=== PATIENT | male | born 1940 | race Caucasian/White ===

== ENCOUNTER 2018-09-10 03:51 | Observation (INO) ==
--- NOTE | 2018-09-10 04:06 | ERNOTE ---
Upper Extremity HPI - General Extremities Pain Location: 2nd finger: left, 3rd finger: left Time Seen by Provider: 09/10/18 03:58 Source: patient Exam Limitations: no limitations - Immun/Allergies/Home Medications Allergies/Adverse Reactions: Allergies Allergy/AdvReac Type Severity Reaction Status Date / Time No Known Allergies Allergy Unverified 08/29/13 17:01 Home Medications: HOME MEDICATIONS Allopurinol [Zyloprim (Allopurinol)] 100 mg PO DAILY 08/29/13 [Last Taken Unknown] Amlodipine Besylate 10 mg PO DAILY 08/29/13 [Last Taken Unknown] Furosemide [Lasix] 40 mg PO DAILY 08/29/13 [Last Taken Unknown] Indomethacin 50 mg PO DAILY 08/29/13 [Last Taken Unknown] Lisinopril [Prinivil] 20 mg PO DAILY 08/29/13 [Last Taken Unknown] - History of Present Illness Narrative: Patient presents to the ER after awakening to nausea and left second and third finger pain. States his nausea has waxed and waned and is somewhat better now Occurred: this morning Severity: moderate, severe Review of Systems - Review of Systems Constitutional: Absent: recent illness Respiratory: Absent: shortness of breath Cardiology: Present: chest pain - "slight pressure" Gastrointestinal/Abdominal: Present: See HPI, nausea Musculoskeletal: Present: neck pain - for a short time Skin: Absent: rash Neurological: Absent: dizziness/light-headedness Endocrine: Absent: excessive sweating Medical History (Updated 09/10/18 @ 07:43 by Yasir Goff DO) Personal history of renal cancer Surgical History: Surgical History (Updated 09/10/18 @ 04:09 by Denise Talbot RN) H/O kidney removal Social History: Preferred Language Spanish Smoking Status Former smoker Alcohol Use rarely Drug Use none No Social History Section defined Physical Exam - Physical Exam General Appearance: Present: wd/wn, alert, no apparent distress Head Exam: Present: normal inspection, no evidence of injury Ears, Nose, Throat: Present: normal ENT inspection, normal pharynx Neck: Present: normal inspection, nontender Respiratory: Present: no respiratory distress, no accessory muscle use, chest nontender, lungs clear Cardiovascular/Chest: Present: regular rate, rhythm, no murmur Gastrointestinal/Abdominal: Present: normal bowel sounds, nontender, nondistended, soft Back Exam: Present: normal inspection, normal range of motion, no vertebral tenderness Extremity Exam: Present: normal inspection, normal range of motion, no edema Neurological Exam: Present: alert, oriented, normal mood/affect, no motor/sensory deficits Skin Exam: Present: normal color, warm/dry Lymphatic Exam: Present: no adenopathy Progress - Results and Orders Patient's Lab Results:: I have reviewed the patient's lab results. Results and Orders: Laboratory Tests 09/10/18 09/10/18 04:15 04:15 WBC 9.4 Hgb 12.2 L Hct 36.5 L Plt Count 179 Sodium 140 Potassium 4.6 Chloride 104 BUN 47 H Creatinine 2.37 H Random Glucose 101 Calcium 8.9 Total Bilirubin 0.4 AST 18 ALT 24 Alkaline Phosphatase 53 Troponin I Less than 0.017 Amylase 103 Lipase 332 - Vital Signs Patient's Vital Signs:: I have reviewed the patient's vital signs. Vital Signs: Vital Signs 09/10/18 03:54 Temperature 36.8 C Pulse Rate 67 Respiratory Rate 13 Blood Pressure 169/76 H O2 Sat by Pulse Oximetry 97 - EKG EKG #1 EKG: NSR EKG read: Interp. by me EKG #2 EKG: NSR, no ST T wave changes EKG read: Interp. by me - X-Ray X-Ray #1 X-Ray: chest Interpretation: Interp. by me X-ray Comments: Atelactasis b/l bases, no infiltrate or effusion - Progress/Reassessment Chief Complaint: Upper Extremity Injury/Problem Progress:: Improved Progress Note-Subjective: Repeat troponin trending up just slightly, discussed with patient staying for observation for serial enzymes he agrees 09/10/18 07:40 Patient has risk factors of gender, age, significant tobacco use history, chronic kidney disease. I spoke with Dr. Starr and she agrees with observation to rule out AR. 09/10/18 07:41 Departure Clinical Impression: Chest pressure - Departure Disposition: Still a patient Condition: Good
[2018-09-10 04:17] LABS: Hematocrit 36.5 % (42.0-52.0); Hemoglobin 12.2 gm/dL (13.5-18.0); Mean Cell Volume 93.1 fl (78-100); Mean Corpuscular Hemoglobin 31.1 pg (27-31); Mean Corpuscular Hgb Conc 33.4 g/dl (32-36); Mean Platelet Volume 9.8 fl (8-11.3); Neutrophil # 6.9 K/mm3 (1.3-6.0); Neutrophil % 73.8 % (42-75.0); Platelet Count 179 K/mm3 (150-450); Red Blood Count 3.92 M/mm3 (4.7-6.0); Red Cell Distribution Width 14.5 % (11.5-14.0); White Blood Count 9.4 K/mm3 (4.0-10.5)
[2018-09-10 04:40] LABS: ALT 24 U/L (19-67); AST 18 U/L (0-48); Albumin * 3.3 gm/dl (3.4-5.0); Alkaline Phosphatase * 53 U/L (50-170); Amylase * 103 U/L (25-115); Anion Gap 16.8 mmol/L (6.8-13.8); BUN/Creatinine Ratio 19.8 (9.0-21.6); Bilirubin, Total 0.4 mg/dL (0.0-1.1); Blood Urea Nitrogen 47 mg/dL (6-23); Ca. Corrected For Albumin 9.1 mg/dL (8.4-10.2); Calcium * 8.9 mg/dL (7.9-10.9); Carbon Dioxide 23.8 mmol/L (24-32.6); Chloride 104 mmol/L (97-106); Glucose * 101 mg/dL (70-110); Lipase 332 U/L (73-393); Potassium 4.6 mmol/L (3.4-4.6); Sodium 140 mmol/L (132-142); Total Protein 7.1 gm/dL (6.2-8.2); Troponin I Less than 0.017 ng/mL (0.00-0.10)
[2018-09-10] MEDS ORDERED: LIDOCAINE 5 APPL TUBE TP PRN (11:35)
[2018-09-10] MEDS ORDERED: ZOLPIDEM TARTRATE 10 MG TABLET PO PRN (11:36)
[2018-09-10] MEDS ORDERED: FEBUXOSTAT 40 MG TABLET PO SCH (11:45)
[2018-09-10] MEDS ORDERED: LISINOPRIL 40 MG TABLET PO SCH (11:45)
[2018-09-10] MEDS ORDERED: VENLAFAXINE HCL 37.5 MG CAP.SR.24H PO SCH (11:45)
[2018-09-10] MEDS ORDERED: FUROSEMIDE 40 MG TABLET PO SCH (11:45)
[2018-09-10] MEDS ORDERED: ACETAMINOPHEN 325 MG TABLET PO PRN (11:54)
--- NOTE | 2018-09-10 12:04 | HP ---
Chief Complaint - Chief Complaint Date of Service: 09/10/18 - n Time of Service: 11:54 Chief Complaint: I had pain in the fingers of the left hand and nausea History of Present Illness: 78-year-old male with past medical history of gout, hypertension, peripheral neuropathy, renal cell carcinoma, chronic kidney disease stage 4, right nephrectomy, was evaluated in the ER due to persistent pain in his second and third digits of his left hand that suddenly started shortly after going to bed last night. Patient reports before going to bed he did not feel right, when asked to elaborate his symptoms he had trouble describing what he was feeling. He just said that something just felt off, but he denied chest pain or chest discomfort at that moment. However patient reports shortly after going to bed he felt extremely nauseous and thought he was going to be sick but did not vomit. He also developed excruciating pain in his first 2 fingers of the left hand. He denied having this pain before or any recent trauma to the hand but reports being treated for progressive peripheral neuropathy by his PCP. And given his extensive chronic kidney disease treatment doses have been minimal and possibly suboptimal which would explain the progression of his neuropathy which might explain the pain in his fingers. He has been taking his medications regularly. Medical History (Updated 09/10/18 @ 12:04 by Desiree Starr MD) Gout HTN (hypertension) Peripheral neuropathy Personal history of renal cancer Surgical History: Surgical History (Updated 09/10/18 @ 08:11 by Princess Castelan RN) H/O kidney removal History of bilateral knee replacement Family History: Family History (Last Updated 09/10/18 @ 08:11 by Princess Castelan RN) Father Arthritis Mother Cervical cancer Brother Renal cancer Vascular disease H/O heart surgery Social History: Patient Lives/Resources Home Utilized Preferred Language Croatian Do you have any orthodox or Yes: Yazidism cultural preference? Smoking Status Former smoker Have you smoked in the past 12 No months Alcohol Use rarely Drug Use none No Social History Section defined Peds Patient Hx - Developmental: No Pertinent Hx Peds Patient Hx - Medical: No Pertinent Hx Peds Patient Hx - Cardiac/Respiratory: No Pertinent Hx Peds Patient Hx - Surgical: No Surgical History Patient History - Cancer: No Hx of Cancer Review Of Systems (GEN) - Review of Systems Generalized/Overall Review: Present: No Symptoms Reported EENTM: Present: No Symptoms Reported Respiratory: Present: No Symptoms Reported Cardiac: Present: No Symptoms Reported Abdominal: Present: Nausea Genitourinary: Present: No Symptoms Reported Musculoskeletal: Present: Joint Pain - Pain in first 2 digits of left hand Neurological: Present: No Symptoms Reported Skin: Present: No Symptoms Reported Endocrine: Present: No Symptoms Reported Allergies/Adverse Reactions: Allergies Allergy/AdvReac Type Severity Reaction Status Date / Time No Known Allergies Allergy Unverified 08/29/13 17:01 Home Medications: HOME MEDICATIONS Furosemide [Lasix] 40 mg PO DAILY 08/29/13 [Last Taken Unknown] Lisinopril [Prinivil] 40 mg PO DAILY 08/29/13 [Last Taken Unknown] Calcifediol [Rayaldee] 30 mcg PO HS 09/10/18 [Last Taken Unknown] Febuxostat [Uloric] 40 mg PO DAILY 09/10/18 [Last Taken Unknown] Venlafaxine HCl [Venlafaxine HCl ER] 37.5 mg PO BID 09/10/18 [Last Taken Unknown] Zolpidem Tartrate [Ambien] 10 mg PO HS PRN 09/10/18 [Last Taken Unknown] Exam - Exam Vital Signs: Vital Signs - Last Taken Temp 36.3 C 09/10/18 09:00 Pulse 63 09/10/18 09:00 Resp 20 09/10/18 09:00 BP 136/69 09/10/18 09:00 Pulse Ox 94 09/10/18 09:00 Constitutional: Present: Alert, Oriented x3, Cooperative, Well developed, Well nourished, No distress, Elderly, Morbidly obese ENT Exam: Present: normal ENT inspection, hearing grossly normal, pharynx normal, TMs normal Eye Exam: bilateral eye: normal inspection, PERRL, EOMI Neck: Present: non-tender, full range of motion, supple, normal inspection, trachea midline, limited range of motion Back Exam: Present: normal inspection, no CVA tenderness, no vertebral tenderness Breasts: Present: Exam deferred Respiratory: Present: chest non-tender, lungs clear, normal breath sounds, no respiratory distress, no accessory muscle use Cardiovascular/Chest: Present: normal peripheral pulses, regular rate, rhythm, no chest tenderness, no edema, no gallop, no JVD, no murmur, no rub Peripheral Pulses: carotid (R): 4+, carotid (L): 4+, femoral (R): 4+, femoral (L): 4+, dorsalis-pedis (R): 4+, dorsalis-pedis (L): 4+ Abdomen: Present: Normal bowel sounds, soft, nontender, nondistended, no rebound tenderness, no hepatospenomegaly, no masses, obese /Rectal: Present: Exam deferred Extremity: Present: normal range of motion, non-tender, normal inspection, no pedal edema, no calf tenderness, normal capillary refill Skin Exam: Present: normal color, warm/dry, no cyanosis Lymphatic: Present: no adenopathy Neurologic: Present: floor worker well service II-XII nml as tested, normal cerebellar test, no motor/sensory deficits, alert, normal mood/affect, oriented x 3 Appearance: Present: appropriate appearance, appropriate insight, neat, no memory impairment Eye contact: Present: cooperative, good eye contact, normal speech Thoughts: Present: normal thought pattern, no apparent hallucination Diagnostic Studies: Abnormal Lab Results 09/10/18 09/10/18 Range/Units 04:15 04:15 RBC 3.92 L (4.7-6.0) M/mm3 Hgb 12.2 L (13.5-18.0) gm/dL Hct 36.5 L (42.0-52.0) % MCH 31.1 H (27-31) pg RDW 14.5 H (11.5-14.0) % Immature Gran # (Auto) 0.04 H (0.000-0.0310) K/mm3 Lymphocytes % 11.7 L (20-51) % Monocytes % 10.4 H (0.0-9) % Neutrophils # 6.9 H (1.3-6.0) K/mm3 Lymphocytes # 1.10 L (1.5-3.5) k/mm3 Carbon Dioxide 23.8 L (24-32.6) mmol/L Anion Gap 16.8 H (6.8-13.8) mmol/L BUN 47 H (6-23) mg/dL Creatinine 2.37 H (0.4-1.4) mg/dL Est GFR (Non-Af Amer) 28 L (60-130) mL/min Albumin 3.3 L (3.4-5.0) gm/dl Laboratory Results WBC 9.4 K/mm3 (4.0-10.5) 09/10/18 04:15 RBC 3.92 M/mm3 (4.7-6.0) L 09/10/18 04:15 Hgb 12.2 gm/dL (13.5-18.0) L 09/10/18 04:15 Hct 36.5 % (42.0-52.0) L 09/10/18 04:15 MCV 93.1 fl (78-100) 09/10/18 04:15 MCH 31.1 pg (27-31) H 09/10/18 04:15 MCHC 33.4 g/dl (32-36) 09/10/18 04:15 RDW 14.5 % (11.5-14.0) H 09/10/18 04:15 Plt Count 179 K/mm3 (150-450) 09/10/18 04:15 MPV 9.8 fl (8-11.3) 09/10/18 04:15 Immature Gran % (Auto) 0.40 % (0.001-0.429) 09/10/18 04:15 Immature Gran # (Auto) 0.04 K/mm3 (0.000-0.0310) H 09/10/18 04:15 73.8 % (42-75.0) 09/10/18 04:15 11.7 % (20-51) L 09/10/18 04:15 10.4 % (0.0-9) H 09/10/18 04:15 2.8 % (0.0-3.0) 09/10/18 04:15 0.9 % (0.0-1.0) 09/10/18 04:15 Nucleated RBC % 0.0 k/mm3 (0-1) 09/10/18 04:15 6.9 K/mm3 (1.3-6.0) H 09/10/18 04:15 1.10 k/mm3 (1.5-3.5) L 09/10/18 04:15 1.0 k/mm3 (0.0-1.0) 09/10/18 04:15 0.3 k/mm3 (0.0-0.7) 09/10/18 04:15 Absolute Basophils 0.1 k/mm3 (0.0-0.1) 09/10/18 04:15 Sodium 140 mmol/L (132-142) 09/10/18 04:15 140 mmol/L (130-142) 09/10/18 04:15 Potassium 4.6 mmol/L (3.4-4.6) 09/10/18 04:15 Chloride 104 mmol/L (97-106) 09/10/18 04:15 Carbon Dioxide 23.8 mmol/L (24-32.6) L 09/10/18 04:15 16.8 mmol/L (6.8-13.8) H 09/10/18 04:15 BUN 47 mg/dL (6-23) H 09/10/18 04:15 2.37 mg/dL (0.4-1.4) H 09/10/18 04:15 Est GFR (Non-Af Amer) 28 mL/min (60-130) L 09/10/18 04:15 19.8 (9.0-21.6) 09/10/18 04:15 101 mg/dL (70-110) 09/10/18 04:15 Calcium 8.9 mg/dL (7.9-10.9) 09/10/18 04:15 Calcium Adj for Albumin 9.1 mg/dL (8.4-10.2) 09/10/18 04:15 0.4 mg/dL (0.0-1.1) 09/10/18 04:15 AST 18 U/L (0-48) 09/10/18 04:15 ALT 24 U/L (19-67) 09/10/18 04:15 53 U/L (50-170) 09/10/18 04:15 0.024 ng/mL (0.00-0.10) 09/10/18 06:55 7.1 gm/dL (6.2-8.2) 09/10/18 04:15 3.3 gm/dl (3.4-5.0) L 09/10/18 04:15 Amylase 103 U/L (25-115) 09/10/18 04:15 332 U/L (73-393) 09/10/18 04:15 Assessment/Plan - Narrative Narrative: Patient was evaluated in the medical chart was reviewed and decision to admit with a diagnosis of rule out CT was taken. Given the patient's risk factors we decided to keep the patient for observation will to rule out any cardiac etiologies. EKG was negative for ST elevation serial troponins have been negative but have increased, so follow-up troponin has been ordered for 1 PM this afternoon. If negative we might consider discharging patient home. Patient also has a history of gout so uric acid level was ordered to rule out an acute gout flareup. He clinic he also has a history of stage IV chronic kidney disease secondary to nephrectomy performed 10 years ago due to kidney cancer, his GFR is at baseline with a value of 28. - Assessment/Plan (1) Ruled out for myocardial infarction Problem: Acute (2) Finger pain, left Problem: Acute (3) Peripheral neuropathy Problem: Chronic (4) History of gout Problem: Chronic
--- NOTE | 2018-09-10 14:41 | DS ---
(1) Ruled out for myocardial infarction Problem: Resolved (2) Finger pain, left Problem: Resolved (3) Peripheral neuropathy Problem: Chronic (4) History of gout Problem: Chronic Description of Stay: 78-year-old male was admitted to our facility for rule out of myocardial infarction or any other cardiac etiology. Patient serial troponin were all negative and EKG is negative for NE. He denies any chest pain or recurrence of the pain in his fingers. Patient has been discharged home with instructions to follow-up with his PCP. Procedures Performed: none Results and Findings: Lab Pending Results 09/10/18 04:15: WBC 9.4, RBC 3.92 L, Hgb 12.2 L, Hct 36.5 L, MCV 93.1, MCH 31.1 H, MCHC 33.4, RDW 14.5 H, Plt Count 179, MPV 9.8, Immature Gran % (Auto) 0.40, Immature Gran # (Auto) 0.04 H, Neutrophils % 73.8, Lymphocytes % 11.7 L, Monocytes % 10.4 H, Eosinophils % 2.8, Basophils % 0.9, Nucleated RBC % 0.0, Neutrophils # 6.9 H, Lymphocytes # 1.10 L, Monocytes # 1.0, Eosinophils # 0.3, Absolute Basophils 0.1 09/10/18 04:15: Sodium 140, Plasma Sodium 140, Potassium 4.6, Chloride 104, Carbon Dioxide 23.8 L, Anion Gap 16.8 H, BUN 47 H, Creatinine 2.37 H, Est GFR (Non-Af Amer) 28 L, BUN/Creatinine Ratio 19.8, Random Glucose 101, Calcium 8.9, Calcium Adj for Albumin 9.1, Total Bilirubin 0.4, AST 18, ALT 24, Alkaline Phosphatase 53, Troponin I Less than 0.017, Total Protein 7.1, Albumin 3.3 L, Amylase 103, Lipase 332 09/10/18 04:15: Uric Acid 6.3 09/10/18 06:55: Troponin I 0.024 09/10/18 13:26: Troponin I 0.022 Discharge Location: Home Disposition: Home self-care Condition: Good Face to Face Encounter completed per CMS Guidelines: No Discharge Activity: Activity as tolerated Discharge Diet: General/regular food Referrals: Asad Bender MD [Primary Care Provider] - Additional Patient Instructions (free text): -Please make TCM appointment unless intermediate discharge. Thank you! Soni @ [phone]. Complete Home Medications List: Complete Home Medication List: Furosemide [Lasix] 40 mg PO DAILY 08/29/13 Lisinopril [Prinivil] 40 mg PO DAILY 08/29/13 Acetaminophen [Tylenol] 650 mg PO Q6H PRN tablet 09/10/18 Calcifediol [Rayaldee] 30 mcg PO HS 09/10/18 Febuxostat [Uloric] 40 mg PO DAILY 09/10/18 Lidocaine [Lmx 4] 1 appl TP DAILY PRN tube 09/10/18 Venlafaxine HCl [Venlafaxine HCl ER] 37.5 mg PO BID 09/10/18 Zolpidem Tartrate [Ambien] 10 mg PO HS PRN 09/10/18
[2018-09-10 16:15] VITALS: BP 126/63
[2018-09-10] MEDS ORDERED: CALCIFEDIOL 30 MCG PO SCH (21:00)
== END 2018-09-10 16:10 | disposition home or self-care (01) ==
LOC: MS 03:51 → ER 03:51 → MS 08:00
PROVIDERS: ADMIT Family Medicine; ATTEND Family Medicine
DX: G62.9 Polyneuropathy, unspecified; M79.645 Pain in left finger(s); Z87.898 Personal history of other specified conditions
CPT/HCPCS: 36415; 71020; 71046; 74019; 74020; 80053; 82150; 83690; 84484; 84550; 85025; 93005; 99285; G0378